=== PATIENT | female | born 1950 | race Caucasian/White ===

== ENCOUNTER → 2019-09-23 08:50 | Outpatient (CLI) | payer MEDICARE, BC ==
[2010-05-25 09:03] VITALS: BMI 40.4
--- NOTE | ~2019-09-23 | ST ---
PATIENT:PADMA ANGELA MEDICAL RECORD: [id number] SEX: F LOCATION:[facility] ORDER #: ADMISSION DATE: 09/23/19 AGE OF PATIENT: 69 REFERRING PHYSICIAN: INTERPRETING PHYSICIAN: PARMINDER SPRAGUE MD DATE OF SERVICE: 09/23/2019 INDICATIONS: Angina, coronary artery disease, hypertension, hyperlipidemia. She was exercised on standard Lexiscan protocol with 28 mCi of sestamibi injected at peak stress, 8 mCi was used previously for rest images. FINDINGS: Gated SPECT reveals preserved ejection fraction of 64% with decreased thickening and brightening throughout the anterior segments. SPECT imaging: Cardiolite was used as myocardial perfusion agent. There is a small fixed perfusion defect anteroapically. This includes the mid anterior, apical anterior, and apex itself. There is no evidence of reversible ischemia. The remaining segments with homogeneous uptake at rest and stress. OVERALL IMPRESSION: This is a minimally abnormal nuclear stress test only showing a fixed perfusion defect anteroapically possibly from breast artifact. Otherwise, no inducible ischemia is present and ejection fraction is preserved at 64%. Continue medical management of the coronary artery disease and cardiac risk factors. TRANSINT:[id number] Voice Confirmation ID: [id number] DOCUMENT ID: [id number] PARMINDER SPRAGUE MD CC: SHANELL VELASQUEZ MD [id number] DICTATION DATE: 09/23/19 1545 DAMPPROOFER: 09/24/19 0718 DEP CLI 09/23/19 [id number] [place] [address]
== END | disposition home or self-care (01) ==
LOC: D.HCCARDIO 08:50
PROVIDERS: ATTEND Internal Medicine Interventional Cardiology
DX: I25.119 Atherosclerotic heart disease of native coronary artery with unspecified angina pectoris (principal)

== ENCOUNTER 2019-10-21 10:28 | Outpatient (CLI) | payer MEDICARE, BC ==
[~2019-10-21] VITALS: Ht 162.6 cm; Wt 96.4 kg
--- NOTE | ~2019-10-21 | HEMODYNAMI ---
PATIENT:PADMA ANGELA MEDICAL RECORD: [id number] : 48 LOCATION:[facility] ADMISSION DATE: 10/21/19 Generatedon:10/21/201913:44 Patient name: PADMA ANGELA Patient #: [id number] SSN: [id number] : 1950 Date of study: 10/21/2019 Page: Of Hemodynamic Procedure Report Patient Data Patient Demographics Procedure consent was obtained First Name: PADMA Gender: Female Last Name: COREEN : 1950 Patient #: [id number] Age: 69 year(s) Race: SSN: [id number] Additional ID: [id number] Contact details Address: [address] [place] [address] State: [place] City: [place] Zip code: [address] Past Medical History Allergies Allergen Reaction Date Comments Reported Other 10/21/2019 CODEINE/SULFA(SULFONAMIDE allergy ANTIBIOTICS) Admission Admission Data Admission Date: 10/21/2019 Admission Time: 10:28 Arrival Date: 10/21/2019 Arrival Time: 0:00 Admit Source: Other Insurance Payor: Medicaid [facility] #: [id number] Height (in.): 64.17 BSA: 2.01 (m2) Height (cm.): 163 BMI: 36.13 (kg/m2) Weight (lbs.): 211.64 Weight (kg.): 96 Lab Results Lab Result Date: 10/21/2019 Lab Result Time: 0:00 Biochemistry Name Units Result Min Max BUN mg/dl 10 --(-*--)-- 7 18 Creatinine mg/dl 0.7 --(*---)-- 0.6 1.3 eGFR ml/min 88.16556 -*(----)-- 90 120 NONAFRICAN CBC Name Units Result Min Max Hematocrit % 41.8 -*(----)-- 42 54 Hemoglobin g/dl 14.7 --(-*--)-- 13.5 17.5 Procedure Procedure Types Cath Procedure Diagnostic Procedure [facility] w/Coronaries Sedation Charges Moderate Sedation up to 15 minutes PCI Procedure Coronary Stent Coronary Stent Initial Procedure Description Procedure Date Procedure Date: 10/21/2019 Procedure Start Time: 13:19 Procedure End Time: 13:42 Procedure Staff Name Function Reinaldo Srivastava MD Performing Physician Chemo Campbell RT Monitor Jennifer Monet RN Nurse Walt Mathur RN Nurse Ethel Chau RT Scrub Indication Angina Procedure Data Cath Procedure Fluoroscopy Diagnostic fluoroscopy Total fluoroscopy Time: 3.3 time: 3.3 min min Diagnostic fluoroscopy Total fluoroscopy dose: 643 dose: 643 mGy mGy Contrast Material Contrast Material Type Amount (ml) Isovue 300 93 Entry Location Entry Primary Successful Side Size Upsize Upsize Entry Closure Succes sful Closure Location (Fr) 1 (Fr) 2 (Fr) Remarks Device Remarks Femoral Right 5 Fr 6 Fr Exoseal artery Short Estimated blood loss: 10 ml Diagnostic catheters Device Type Used For End Catheter Placement MULTIPACK JL 4.0 5Fr Procedure catheter MULTIPACK 3DRC 5Fr Procedure catheter MULTIPACK Pigtail 5 Fr Procedure catheter Procedure Complications No complications Procedure Medications Medication Administration Route Dosage Oxygen etCO2 Nasal cannula 2 l/min Heparin Flush Bag added to field 2 bags (1000units/500ml NS) Lidocaine 2% added to field 20 0.9% NaCl I.V. 100 ml/hr Versed I.V. 1 mg Fentanyl I.V. 50 mcg Heparin Bolus I.V. 4000 units Integrilin (Bolus I.V. 8.5 ml 2mg/ml) Plavix P.O. 600 mg Hemodynamics Rest BSA: 2.01 (m2) O2 Consumption: Estimated: 194.28 (ml/min) O2 Consumption indexed : Estimated:96.66 (ml/min/m) Heart Rate: 82 (bpm) Pressure Samples Time Site Value (mmHg) Purpose Heart Use Rate(bpm) 13:25 LV 104/9,10 Snapshot 100 13:26 AO 110/59(77) Pullback 88 13:34 AO 91/52(69) Snapshot 90 Gradients Valve Time Site Site 2 Mean SEP/DFP Peak To Heart Use 1 (mmHg) (sec/min) Peak Rate (mmHg) (bpm) Aortic 13:26 LV AO 7 7 88 110/59(77) Calculations Valve P-P Mean Valve Index Valve Source Name Gradient Area Flow (cm2) Aortic 7 7 Snapshots Pre Cath Intra NCS Post Cath Vital Signs Time Heart Resp SPO2 etCO2 NIBP (mmHg) Rhythm Pain Sedation Rate (ipm) (%) (mmHg) Status Level (bpm) 13:10:32 82 18 99 0 161/87(126) NSR 0 (11) 10(A) , No pain 13:14:43 82 16 97 0 132/79(109) NSR 0 (11) 10(A) , No pain 13:19:04 88 19 96 0 135/67(101) NSR 0 (11) 10(A) , No pain 13:23:20 86 17 93 0 122/74(97) NSR 0 (11) 9(A) , No pain 13:27:29 87 18 95 0 123/67(94) NSR 0 (11) 9(A) , No pain 13:31:41 87 20 95 0 103/63(86) NSR 0 (11) 9(A) , No pain 13:35:49 92 18 96 0 122/71(97) NSR 0 (11) 9(A) , No pain 13:39:57 96 16 95 0 135/82(114) NSR 0 (11) 9(A) , No pain Medications Time Medication Route Dose Verified Delivered Reason Notes Effectiveness by by 13:05:48 Oxygen etCO2 2 Jennifer Jennifer for low 02 sats Nasal l/min Chiki Monet cannula RN RN 13:06:01 Heparin Flush added 2 Jennifer Jennifer used for Bag to bags Monetjoy Monet procedure (1000units/500ml field GENTILE RN NS) 13:06:13 Lidocaine 2% added 20ml Jennifer Reinaldo for local to vial [facility] anesthetic field SEFERINO LANDRY 13:09:47 0.9% NaCl I.V. 100 Jennifer Jennifer Per physician ml/hr Chiki Monet RN RN 13:19:24 Versed I.V. 1 mg Jennifer Jennifer for sedation Chiki Monet RN RN 13:19:28 Fentanyl I.V. 50 Jennifer Jennifer for sedation mcg Chiki Monet RN RN 13:28:00 Heparin Bolus I.V. 4000 Jennifer Jennifer for hepar in units Chiki Monet anticoagulation verified RN RN with walt mathur rn 13:28:27 Integrilin I.V. 8.5ml Jennifer Jennifer waste d (Bolus 2mg/ml) Chiki Monet 1.5ml RN RN 13:40:00 Plavix P.O. 600 Jennifer Hernandezika for mg Chiki Monet antiplatelet RN RN therapy Procedure Log Time Note 12:45:37 Walt Mathur RN sent for patient. Start room use. 12:45:57 Informed consent obtained and on chart 12:49:21 Indication : Angina 12:49:40 Procedure Status Elective Heart Cath (OP). 12:49:45 Time tracking: Regular hours (M-F 7:00 - 5:00) 12:50:23 Arrival Date: 10/21/2019 12:00:00 AM 12:51:03 Insurance Payor : Medicaid 12:51:05 Admit Source: Other 12:51:19 Patient Height : 64.17 inches 12:51:26 Patient Weight : 211.64 lbs 12:52:46 Plan of Care:Hemodynamics will remain stable., Cardiac rhythm will remain stable., Comfort level will be maintained., Respiratory function will remain adequate., Patient/ family verbilizes understanding of procedure., Procedure tolerated without complication., Recovers from procedure without complications.. 12:53:43 Lab Result : Creatinine 0.7 mg/dl 12:53:43 Lab Result : BUN 10 mg/dl 12:53:43 Lab Result : eGFR NONAFRICAN 88.03915 ml/min 12:53:43 Lab Result : Hematocrit 41.8 % 12:53:43 Lab Result : Hemoglobin 14.7 g/dl 12:54:31 Patient allergic to Other allergyCODEINE/SULFA(SULFONAMIDE ANTIBIOTICS) 12:57:16 Risk of Mortality: 0.7 12:57:22 Risk of blood transfusion: 0.4 12:57:27 Risk of JEREMIAS: 1.3 12:58:13 Patient received from Pre/Post Procedure Room to CCL 1 Alert and oriented. Tansferred to table in Supine position. 13:05:48 Oxygen 2 l/min etCO2 Nasal cannula was administered by Jennifer Monet RN; for low 02 sats; Verbal order read back and verified. 13:06:01 Heparin Flush Bag (1000units/500ml NS) 2 bags added to field was administered by Jennifer Monet RN; used for procedure; Verbal order read back and verified. 13:06:13 Lidocaine 2% 20ml vial added to field was administered by Reinaldo Srivastava MD; for local anesthetic; Verbal order read back and verified. 13:09:16 Warm blankets applied, and demetria hugger turned on for patient comfort. 13:09:16 Correct patient and procedure confirmed by team. 13:09:17 ECG and BP/O2 sat monitors applied to patient. 13:09:18 Vital chart was started 13:09:47 0.9% NaCl 100 ml/hr I.V. was administered by Jennifer Monet RN; Per physician; Verbal order read back and verified. 13:09:50 Baseline sample Acquired. 13:11:05 Rhythm: unchanged. 13:11:17 Full Disclosure recording started 13:11:48 H&P Date Dictated: 10/15/2019 Within 30 days and on chart.. 13:11:50 Pre-procedure instructions explained to patient. 13:11:51 Pre-op teaching completed and patient verbalized understanding. 13:11:53 Family in patients room. 13:11:55 Patient NPO since Midnight. 13:12:21 Is the patient allergic to Iodine/contrast media? No. 13:12:33 Is patient on blood thinner?No 13:12:37 ACC The patient was administered the following blood thiners within the last 24 hours: None 13:13:04 Patient diabetic? Yes. 13:13:14 If diabetic: On Metformin? Yes 13:13:16 If on Metformin: Last Dose? 10/19/2019 13:13:19 Previous problem with sedation/anesthesia? No ? 13:13:20 Snore? Yes 13:13:21 Sleep apnea? No 13:13:22 Deviated septum? No 13:13:23 Opens mouth fully? Yes 13:13:25 Sticks out tongue? Yes 13:13:29 Airway obstruction? No ? 13:13:32 Dentures? No ? 13:13:40 Pre procedure: right dorsailis pedis pulse 1+ Palpable, but thready & weak; easily obliterated 13:13:42 Patient pain scale 0/10 ?. 13:17:04 No radial due to hx of TIA and Stroke. 13:18:20 IV patent on arrival in right forearm with 0.9% NaCl at [facility]. 13:18:24 Lab results completed and on chart. 13:18:30 Right groin area was prepped with chlora-prep and draped in sterile fashion 13:18:31 Alarms reviewed by R. N. 13:18:31 Sharps counted by scrub and verified by R.N. 13:18:40 Physician arrived 13:18:41 --------ALL STOP TIME OUT------ 13:18:45 Final Timeout: patient, procedure, and site verified with staff and physician. All members of the team are in agreement. 13:18:49 Right groin site verified by team. 13:18:52 Fire Safety Assessment: A--An alcohol-based skin anteseptic being used preoperatively., C--Open oxygen or nitrous oxide is being used., D--An ESU, laser, or fiber-optic light is being used. 13:18:54 Physical assessment completed. ASA score P 2 - A patient with mild systemic disease as per Reinaldo Srivastava MD. 13:18:58 Sedation plan: IV Moderate Sedation Medication:Versed, Fentanyl 13:19:12 2) 60-89 Mildly reduced kidney function, and other findings (as for stage 1) point to kidney disease. 13:19:16 Maximum allowable contrast dose (3.7 X eGFR X 0.75)244 ml. 13:19:24 Versed 1 mg I.V. was administered by Jennifer Monet RN; for sedation; Verbal order read back and verified. 13:19:28 Fentanyl 50 mcg I.V. was administered by Jennifer Monet RN; for sedation; Verbal order read back and verified. 13:19:37 Use device set Femoral Dx 13:19:40 Tegaderm 4 x 4 (1626W) opened to sterile field. 13:19:41 ACIST Manifold (63229) opened to sterile field. 13:19:42 ACIST Hand Control (40798) opened to sterile field. 13:19:43 ACIST Syringe (85929) opened to sterile field. 13:19:44 Bag Decanter (2002) opened to sterile field. 13:19:44 Medline Cath Pack ([id number]) opened to sterile field. 13:19:46 DIAGNOSTIC Multipack 5Fr catheter set (KW9906) opened to sterile field. 13:19:48 SHEATH 5FR [place] (MUN735) opened to sterile field. 13:19:48 EMERALD Guide Wire (810-111) opened to sterile field. 13:19:53 Procedure started. 13:19:59 Local anesthetic to right femoral artery with Lidocaine 2% by Reinaldo Srivastava MD.INITIAL ACCESS ONLY 13:20:53 A 5 Fr sheath was inserted into the Right Femoral artery 13:21:11 A MULTIPACK JL 4.0 5Fr catheter was advanced over the wire and used for Procedure. 13:21:58 LCA angiography performed. 13:22:35 Catheter removed. 13:22:46 A MULTIPACK 3DRC 5Fr catheter was advanced over the wire and used for Procedure. 13:23:41 RCA angiography performed. 13:23:49 ACCDominant side:Left 13:23:50 Catheter removed. 13:23:56 A MULTIPACK Pigtail 5 Fr catheter was advanced over the wire and used for Procedure. 13:24:51 LV angiography performed. 13:24:52 LV gram done using PORRAS 13:25:10 EF : 55 % 13:25:13 LV hemodynamics recorded. 13:25:17 Injector settings: Ml/sec: 5, Volume: 15, 13:25:58 Catheter removed. 13:26:[address] [facility] PCI 13:26:26 SHEATH 6FR [place] (LCF476) opened to sterile field. 13:26:31 INFLATOR Merit BasixCompak (FW7868) opened to sterile field. 13:26:35 WHISPER 300cm guide wire ([id number]) opened to sterile field. 13:26:39 GUIDE 6FR XBLAD 3.5 catheter ([id number]) opened to sterile field. 13:27:36 Sheath upsized to a 6 Fr Short. 13:27:50 Pre PCI Site: [place] pLAD has 80% stenosis. 13:27:53 ACC Pre-intervention KLYE Flow is 3. 13:28:00 Heparin Bolus 4000 units I.V. was administered by Jennifer Monet RN; for anticoagulation; heparin verified with walt mathur rn Verbal order read back and verified. 13:28:07 6 Fr XBLAD 3.5 guide catheter was inserted over the wire 13:28:24 Whisper wire advanced. 13:28:27 Integrilin (Bolus 2mg/ml) 8.5ml I.V. was administered by Jennifer Monet RN; ; wasted 1.5ml Verbal order read back and verified. 13:28:41 Wire advanced across lesion. 13:35:00 Place stent Inflation Number: 1 A MARIAH RX 3.0 x 18 stent ([id number]) was prepped and advanced across the Prox LAD 80. The stent was deployed at 14 FRANKO for 0:30 (min:sec) 0. 13:35:25 Stent catheter was removed intact over wire. 13:35:26 Wire removed. 13:35:27 Guide catheter removed. 13:35:37 Post PCI Site: Minto pLAD has 0% stenosis. 13:35:41 ACC Post-intervention KYLE Flow is 3. 13:35:43 EXOSEAL 6Fr (EX600) opened to sterile field. 13:35:56 Sheath removed intact; hemostasis achieved with Exoseal to the Right Femoral artery. 13:36:08 Procedure ended.(Physican Out) 13:40:00 Plavix 600 mg P.O. was administered by Jennifer Monet RN; for antiplatelet therapy; Verbal order read back and verified. 13:40:14 Fluoroscopy time 03.30 minutes. 13:40:19 Fluoroscopy dose: 643 mGy 13:40:19 Flurop Dose total: 643 13:40:25 Dose Area Product 76925 mGy/cm. 13:40:35 Contrast amount:Isovue 300 93ml. 13:40:38 Maximum allowable dose exceeded? No. 13:40:40 Sharps counted by scrub and verified by R.N. 13:40:41 Insertion/operative site no bleeding no hematoma. 13:40:44 Post-op/insertion site Right Femoral artery dressed using a 4 x 4 and Tegaderm. 13:40:45 Post Procedure Pulses reassessed and unchanged 13:40:48 Post-procedure physical assessment completed. ASA score P 2 - A patient with mild systemic disease as per Reinaldo Srivastava MD. 13:40:50 Post procedure rhythm: unchanged. 13:40:54 Estimated blood loss: 10 ml 13:40:56 Post procedure instruction explained to patient.Patient verbalizes understanding. 13:40:57 Patient needs reinforcement of post procedure teaching. 13:41:23 Procedure type changed to Cath procedure, Diagnostic procedure, LHC, LHC w/Coronaries, Sedation Charges, Moderate Sedation up to 15 minutes, PCI procedure, Coronary Stent, Coronary Stent Initial 13:41:24 Procedure and supply charges have been captured, reviewed, submitted and are correct. 13:41:27 Procedure Complication : No complications 13:42:00 ACT drawn and resulted at 289 seconds. (normal therapeutic range 180-240 seconds). 13:42:08 Vital chart was stopped 13:42:11 [facility] Findings: MVD- PCI performed (see procedure note) 13:42:12 Operative report dictated upon procedure completion. 13:42:13 See physician's report for complete and final results. 13:42:18 Report given to Pre/Post Procedure Room. 13:42:21 Patient transfered to Pre/Post Procedure Room with Stretcher. 13:42:23 Procedure ended. 13:42:23 Full Disclosure recording stopped 13:42:28 End room use (Document Last) 13:42:51 End room use (Document Last) 13:43:23 End room use (Document Last) Intervention Summary Intervention Notes Time ActionType Lesion and Equipment Used Action# Pressure Duration Attributes 13:35:[address] Place stent Prox LAD MARIAH RX 3.0 x 1 14 00:30 18 stent ([id number]) Device Usage Item Name Manufacture Quantity Catalog Hospital Part [facility] Lot# / Number Charge Number Stock Stock Serial# Code Tegaderm 4 x 4 3M 1 [id number] [id number] 998179 819761 5 (1626W) ACIST Manifold Acist 1 98371 263860 637539 108058 5 (89015) Medical Systems Inc ACIST Hand Acist 1 62737 007780 650562 256939 5 Control Medical (80934) Systems Inc ACIST Syringe Acist 1 13105 003849 108219 060535 20 (64426) Medical Systems Inc Bag Decanter Microtek 1 2001S 907473 15551 913475 5 (2001S) Medical Inc. Medline Cath Medline 1 [id number] 073219 88008 439984 5 Pack ([id number]) DIAGNOSTIC Cardinal 1 WT1466 875790 01165 765441 30 Multipack 5Fr Health catheter set (RW2441) SHEATH 5FR Terumo 1 DSB812 614341 544398 783403 5 [place] (RDH327) EMERALD Guide Cardinal 1 502-455 657909 756351 972222 5 Wire (502-164) Health MULTIPACK JL Cardinal 1 113459 5 4.0 5Fr Health catheter MULTIPACK 3DRC Cardinal 1 956538 5 5Fr catheter Health MULTIPACK Cardinal 1 318486 5 Pigtail 5 Fr Health catheter SHEATH 6FR Terumo 1 XIE835 628458 639708 691846 40 [place] (SCH151) INFLATOR Merit Merit 1 VZ3549 674223 215435 504238 15 [facility] Medical (XG8424) WHISPER 300cm Jauregui 1 [id number] 975254 599264 494933 5 guide wire Vascular ([id number]) GUIDE 6FR Cardinal 1 [id number] 683929 526956 518032 10 XBLAD 3.5 Health catheter ([id number]) MARIAH RX 3.0 x Medtronic 1 [id number] 278237 3162287 678934 5 [id number] 18 stent ([id number]) EXOSEAL 6Fr Cardinal 1 EX600 751642 052124 846536 10 (EX600) Health Signature Audit [place] Stage Time Signature Unsigned Intra-Procedure 10/21/2019 Chemo Campbell 1:42:51 PM RT(R) Intra-Procedure 10/21/2019 Walt Mathur RN 1:43:23 PM Intra-Procedure 10/21/2019 Reinaldo Mai 1:44:05 PM Bill LANDRY [facility] [address] [place] [address]
[2019-10-21] MEDS ORDERED: JANUVIA100 MG PO (11:20)
[2019-10-21] MEDS ORDERED: GLUCOPHAGE XR750 MG PO (11:20)
[2019-10-21] MEDS ORDERED: GLIPIZIDE10 MG PO (11:21)
[2019-10-21] MEDS ORDERED: COREG6.25 MG PO (11:21)
[2019-10-21] MEDS ORDERED: LIPITOR40 MG PO (11:21)
[2019-10-21] MEDS ORDERED: TUMS X-STR300 MG PO (11:22)
[2019-10-21] MEDS ORDERED: ACETAMINOPHEN325 MG PO (11:22)
[2019-10-21] MEDS ORDERED: ASPIRIN325 MG PO (11:29)
[2019-10-21 11:34] VITALS: BP 170/85; Ht 162.6 cm; Wt 96.4 kg
[2019-10-21 11:52] LABS: BASOPHILS 0.1 % (0-2); EOSINOPHILS 1.2 % (0-7); HEMATOCRIT 41.8 % (36.0-48.0); HEMOGLOBIN 14.7 g/dL (12-16); IMMATURE GRANULOCYTES 0.5 % (0-5); LYMPHOCYTES 20.5 % (15-50); MCH 32.5 pg (26.0-34.0); MCHC 35.2 g/dL (31.0-37.0); MCV 92.3 fL (80.0-100.0); MEAN PLATELET VOLUME 11.2 fL (7.4-10.4); MONOCYTES 6.1 % (2-11); NEUTROPHILS 71.6 % (40-80); PLATELET COUNT 170 10x3/uL (130-400); RBC 4.53 10x6/uL (4.00-5.40); RDW 13.1 % (11.5-14.5); WBC 8.2 10x3/uL (4.8-10.8)
[2019-10-21 11:59] LABS: ALT (SGPT) 46 U/L (10-68); CALC OSMOLALITY 283 mosm/kg (275-300); CARBON DIOXIDE 27.4 mmol/L (21.0-32.0); CHLORIDE - SERUM 101 mmol/L (98-107); CHOL - HDL RATIO 1.6 ratio (2.3-4.1); CHOLESTEROL, TOTAL 108 mg/dL (0-200); CREATININE - SERUM 0.7 mg/dL (0.6-1.3); GLUCOSE 366 mg/dL (74-106); HDL CHOLESTEROL 67 mg/dL (32-96); LDL CHOLESTEROL 30 mg/dL (0-100); LDL-HDL RATIO 0.4 ratio (1.5-3.5); SODIUM 135 mmol/L (136-145); TRIGLYCERIDE 55 mg/dL (30-200); UREA NITROGEN 10 mg/dL (7-18); eGFR NON AFRICAN AMERICAN 88 mL/min (90-120)
--- NOTE | 2019-10-21 14:00 | NUR ---
PATIENT ARRIVED TO ROOM 3, PLACED ON CM. VSS ON 2L NC. RIGHT GROIN DRESSING IS CDI, NO S/S OF BLEEDING OR HEMATOMA.
[2019-10-21] MEDS ORDERED: BAYER CHEWABLE81 MG PO (14:04)
[2019-10-21] MEDS ORDERED: PLAVIX75 MG PO (14:04)
--- NOTE | 2019-10-21 14:15 | NUR ---
PATIENT GIVEN ZOFRAN ORDERED. RIGHT GROIN DRESSING IS CDI, NO S/S OF BLEEDING OR HEMATOMA. NO C/O PAIN, NUMBNESS, OR TINGLING. WILL CONTINUE TO MONITOR.
--- NOTE | 2019-10-21 14:45 | NUR ---
PATIENT RESTING, VSS ON 2L NC. RIGHT GROIN DRESSING IS CDI, NO S/S OF BLEEDING OR HEMATOMA. NO C/O PAIN, NUMBNESS, OR TINGLING. TOLERATING PO FLUIDS, NO N/V. FAMILY PRESENT AT BEDSIDE.
--- NOTE | 2019-10-21 15:15 | NUR ---
PATIENT RESTING, VSS ON 2L NC. RIGHT GROIN DRESSING IS CDI, NO S/S OF BLEEDING OR HEMATOMA. NO C/O PAIN, NUMBNESS, OR TINGLING. NO N/V. PATIENT FAMILY PRESENT AT BEDSIDE.
--- NOTE | 2019-10-21 15:45 | NUR ---
PATIENT AWAKE, VSS ON ROOM AIR. RIGHT GROIN DRESSING IS CDI, NO S/S OF BLEEDING OR HEMATOMA. NO C/O PAIN, NUMBNESS, OR TINGLING. FAMILY PRESENT AT BEDSIDE.
--- NOTE | 2019-10-21 16:15 | NUR ---
PATIENT INTERMITTENTLY RESTING. VSS ON ROOM AIR. RIGHT GROIN DRESSING IS CDI, NO S/S OF BLEEDING OR HEMATOMA. NO C/O PAIN, NUMBNESS, OR TINGLING. NO N/V. FAMILY PRESENT AT BEDSIDE.
--- NOTE | 2019-10-21 16:43 | NUR ---
HEAD OF BED ELEVATED TO 45 DEGREES. RIGHT GROIN DRESSING IS CDI,N O S/S OF BLEEDING OR HEMATOMA. PATIENT GIVEN TURKEY SANDWICH AND COFFEE PER REQUEST, NO N/V. VSS ON ROOM AIR. FAMILY PRESENT AT BEDSIDE.
--- NOTE | 2019-10-21 17:00 | NUR ---
HEAD OF BED AT 90 DEGREES. RIGHT GROIN DRESSING IS CDI, NO S/S OF BLEEDING OR HEMATOMA. NO C/O PAIN, NUMBNESS, OR TINGLING. PATIENT VOIDED WITHOUT DIFFICULTY. WRITTEN AND VERBAL DISCHARGE INSTRUCTIONS GIVEN TO PATIENT AND FAMILY, ALL QUESTIONS ANSWERED. PERIPHERAL IV REMOVED. PATIENT DISCONNECTED FROM MONITORS TO GET DRESSED.
--- NOTE | 2019-10-21 17:25 | NUR ---
PATIENT TRANSPORTED VIA WHEELCHAIR TO CAR WITH FAMILY DRIVING. ALL BELONGINGS WITH PATIENT.
--- NOTE | 2019-10-22 14:58 | OP ---
PATIENT NAME: PADMA ANGELA MEDICAL RECORD: [id number] :48 LOCATION:[facility] ADMISSION DATE: SURGEON: JEOVANNY VALDERRAMA MD DATE OF OPERATION: 10/21/2019 PROCEDURES: Left heart catheterization, selective coronary angiography, right femoral artery approach. CATHETERS: A 5-Uzbek sheath, 5/4 left and right Alysha, 5/4 pig. The procedure was well tolerated. The patient returned to the chavez, sheath removed. ExoSeal device placed. FINDINGS: Left ventriculography in 30-degree PORRAS view: Normal wall motion, normal systolic function. CORONARY ANATOMY: LEFT MAIN: Left main is free of disease. LAD: Has a diffuse 80% stenosis before the previously placed stent of 80%. CIRCUMFLEX: Has distal typical of diabetic disease. RIGHT CORONARY ARTERY: The right coronary artery is a moderate-sized right dominant system, free of disease. PLAN: Intervention to the LAD momentarily. DESCRIPTION OF PROCEDURE: A 5-Uzbek sheath was exchanged for a 6-Uzbek sheath. XB LAD provided good guide catheter support, followed by 300 cm Whisper wire, it was placed across the occluded 80% at the distal portion of vessel. Stent deployed was a 3.0 x 18 mm Ayush drug-eluting stent up to 14 atmospheres for 45 seconds. Final angiography showed excellent resolution from 80% stenosis to no significant residual. KYLE flow was 3 throughout the procedure. Sheath was closed with ExoSeal device. Plavix loaded in the lab. TRANSINT:[id number] Voice Confirmation ID: [id number] DOCUMENT ID: [id number] JEOVANNY VALDERRAMA MD at 1458 CC: [id number] DICTATION DATE: 10/21/19 1345 SENIOR PROFESSIONAL SERVICES CONSULTANT: 10/21/19 1859 DEP CLI 10/21/19 [place] [id number]
== END 2019-10-21 17:25 ==
LOC: D.CATH 10:28
PROVIDERS: ATTEND Internal Medicine Interventional Cardiology
DX: I25.110 Atherosclerotic heart disease of native coronary artery with unstable angina pectoris (principal); E11.9 Type 2 diabetes mellitus without complications; I10 Essential (primary) hypertension; E78.5 Hyperlipidemia, unspecified; Z79.84 Long term (current) use of oral hypoglycemic drugs
CPT/HCPCS: 93458; C9600